=== PATIENT | male | born 1995 | race Caucasian/White ===

== ENCOUNTER 2017-03-27 20:14 | Emergency (ER) | payer SELFPAY ==
[~2017-03-27] VITALS: Ht 175.3 cm; Wt 78.6 kg
[~2017-03-27 20:14] MED LIST: AMOXICILLIN 50500 MG PO; BACTRIM DS 8001 TAB PO; CEPHALEXIN250 M1 PO; MOTRIN 800800 MG/TAB PO; NO HOME MEDICATIONS; NORCO 325 MG-51 TAB PO; TAMIFLU 75MG75 MG PO; TYLENOL W/COD1 UDTAB PO; ZITHROMAX Z PA250 MG PO
[2017-03-27 20:17] VITALS: BP 143/83; TEMP 99
[2017-03-27 21:55] VITALS: PULSE 90
== END 2017-03-27 21:55 | disposition home or self-care (01) ==
LOC: COL.ER 20:14
DX: J02.9 Acute pharyngitis, unspecified (principal)

== ENCOUNTER → 2020-06-11 | Outpatient (CLI) | payer BC | LOC: ZCOL.LAB 18:46 | DX: Z20.828 Contact with and (suspected) exposure to other viral communicable diseases (principal) ==

== ENCOUNTER 2023-09-24 18:18 | Emergency (ER) | payer OTHER ==
[~2023-09-24] VITALS: Ht 172.7 cm; Wt 93.6 kg
[2023-09-24 18:23] VITALS: TEMP 98.4
[2023-09-24 19:05] LABS: BASO # 0.1 K/mm3 (0.0-0.2); BASO % 0.5 % (0.0-2.0); EOS # 0.2 K/mm3 (0.0-0.7); EOS % 1.8 % (0.0-4.0); GRAN # 7.2 K/mm3 (1.4-6.5); GRAN % 61.9 % (42.2-75.2); HEMATOCRIT 44.4 % (42.0-52.0); HEMOGLOBIN 15.6 g/dl (13.5-18.0); LYMPH # 3.1 K/mm3 (1.2-3.4); LYMPH % 26.5 % (20.0-51.0); MEAN CELL VOLUME 86 fl (80.0-100.0); MEAN CORPUSCULAR HEMOGLOBIN 30 pg (27-31); MEAN CORPUSCULAR HGB CONC 35 g/dl (33.0-37.0); MEAN PLATELET VOLUME 9.8 fl (7.4-10.4); MONO # 1.1 K/mm3 (0.1-0.6); PLATELET COUNT 325 K/mm3 (130-400); RED BLOOD COUNT 5.16 M/mm3 (4.20-5.60); REDCELL DISTRIBUTION WIDTH-CV 11.9 % (11.5-14.5)
[2023-09-24 19:17] LABS: ALBUMIN 4.2 gm/dL (3.5-5.0); BILIRUBIN,TOTAL 0.4 mg/dL (0.2-1.2); CALCIUM 9.6 mg/dL (8.4-10.2); CREATININE, serum 1.01 mg/dL (0.72-1.25); POTASSIUM 3.8 mmol/L (3.5-4.5); TOTAL PROTEIN 7.8 gm/dL (6.2-8.1)
[2023-09-24] MEDS ORDERED: FLEXERIL 1010 MG/TAB PO (20:31)
[2023-09-24 20:58] VITALS: BP 130/86; PULSE 68
== END 2023-09-24 21:06 | disposition home or self-care (01) ==
LOC: COL.ER 18:18
PROVIDERS: Emergency Medicine
DX: S39.011A Strain of muscle, fascia and tendon of abdomen, initial encounter (principal); M25.552 Pain in left hip; W10.8XXA Fall (on) (from) other stairs and steps, initial encounter
CPT/HCPCS: J1885; J3010; J7030; Q9967